=== PATIENT | male | born 1960 | race Caucasian/White ===

== ENCOUNTER 2017-07-08 07:51 | Inpatient (IN) | payer OTHER ==
--- NOTE | 2017-06-25 10:24 | HP ---
AMENDED REPORT NOW INCLUDES COSIGNER DESIGNATION - ESIGNED BEFORE ADJUSTMENT HISTORY AND PHYSICAL: DATE OF ADMISSION/SURGERY: 07/08/17 SURGEON: Sophia Carbajal MD * (DICTATED BY SALEEM RUBIO) PROCEDURE: Total knee arthroplasty. DATE OF OFFICE VISIT: 06/25/17 CHIEF COMPLAINT: Left knee pain. HISTORY OF PRESENT ILLNESS: Mr. Mendes is a 56-year-old gentleman with complaints of left knee pain. He failed conservative management and has elected to proceed with a left total knee arthroplasty which is scheduled for with Dr. Carbajal. PAST MEDICAL HISTORY: Hypertension, high cholesterol. PAST SURGICAL HISTORY: Right total knee arthroplasty, left thumb surgery, appendectomy, left knee arthroscopy. CURRENT MEDICATIONS: 1. Lisinopril. 2. Atorvastatin. 3. Calcium. 4. Claritin. 5. Aleve. 6. Gabapentin. 7. Sour lopez juice . ALLERGIES: None. FAMILY HISTORY: Diabetes. SOCIAL HISTORY: A 56-year-old gentleman lives with his . He works for [id number]. He does not smoke or use drugs. Uses alcohol occasionally. REVIEW OF SYSTEMS: A complete 14-point review of systems was reviewed with the patient. It is all negative or noncontributory. PHYSICAL EXAMINATION GENERAL: He is well developed, well nourished, in no acute distress. He is alert and oriented x3. Pleasant mood and appropriate affect. VITAL SIGNS: He stands 6 feet tall ,weighs 118 pounds. His blood pressure is 129/82, his heart rate is 83. HEENT: Normocephalic, atraumatic. NECK: Supple. No palpable nodes. PULMONARY: Lungs are clear to auscultation bilaterally. CARDIO: Regular rate and rhythm. Strong S1, S2. ABDOMEN: Soft, nontender, nondistended. NEUROLOGIC: Cranial nerves II through XII are intact. MUSCULOSKELETAL: Left lower extremity, the skin is intact. There are no open wounds or abrasions. There is a mild to moderate joint effusion. He has 0 to 125 degrees range of motion with patellofemoral crepitus. His lower extremity muscle strength is intact at 5/5. He has 2+ dorsalis pedis pulses and intact sensation. ASSESSMENT AND PLAN: Mr. Mendes is a 56-year-old gentleman with complaints of left knee pain secondary to advanced osteoarthritis. He has failed conservative management and has elected to proceed with a left total arthroplasty which is scheduled for 07/08/[address] Carbajal has discussed the risks and benefits of the surgery at today's visit. All of his questions were answered. Percocet, Coumadin and Colace were sent to his pharmacy for postoperative pain control and DVT prophylaxis. He will see Dr. Carbajal in 2 weeks after the surgery. SALEEM RUBIO [id number]/[facility] #: [id number] LEE ANN
[~2017-07-08 07:51] MED LIST: Buffered Lidocaine 0.9% SYRIN* 5 ML/SYR SYRINGE INTRADERM ONE; Famotidine IV* 10 MG/ML 2 ML (20 mg) IV ONE; Morphine INJ* 2 MG/ML 1 ML SYRINGE IV PRN; PROCHLORPERAZINE INJ 5 MG/ML 2 ML VIAL IV PRN; Scopolamine 1.5 mg* PATCH TRANSDERM PRN; fentaNYL* 50 MCG/ML 2 ML VIAL (100 MCG VIAL) IV PRN; oxyCODONE/Acetamin 5/325 MG* TAB PO PRN
[2017-07-08] MEDS ORDERED: Famotidine IV* 10 MG/ML 2 ML (20 mg) ONE (08:00)
[2017-07-08] MEDS ORDERED: Buffered Lidocaine 0.9% SYRIN* 5 ML/SYR SYRINGE ONE (08:00)
[2017-07-08] MEDS ORDERED: ceFAZolin 2 GM PREMIX (*) 50 ML IVPB ONE (08:00)
[2017-07-08] MEDS ORDERED: fentaNYL* 50 MCG/ML 2 ML VIAL (100 MCG VIAL) ONE (08:09)
[2017-07-08] MEDS ORDERED: Midazolam* 1 MG/ML 5 ML VIAL (5 MG) ONE ×2 (08:09→10:00)
[2017-07-08] MEDS ORDERED: KETAMINE HCL* 50 MG/ML 10 ML VIAL ONE (08:09)
[2017-07-08] MEDS ORDERED: Morphine PF AMP (0.5MG/ML)* 5 MG/10 ML AMP ONE (09:01)
[2017-07-08] MEDS ORDERED: PROCHLORPERAZINE INJ 5 MG/ML 2 ML VIAL IV PRN (11:06)
[2017-07-08] MEDS ORDERED: oxyCODONE TAB* 5 MG TAB PO PRN ×2 (11:06→12:46)
[2017-07-08] MEDS ORDERED: Naloxone* 0.4 MG/ML 1 ML VIAL IV PRN (11:06)
[2017-07-08] MEDS ORDERED: Nalbuphine* 20 MG/ML 1 ML VIAL IV PRN (11:06)
[2017-07-08] MEDS ORDERED: Ondansetron INJ* 2 MG/ML VIAL IV PRN ×2 (11:06→12:46)
[2017-07-08] MEDS ORDERED: diPHENhydraMINE IV* 50 MG/ML 1 ml VIAL (BENADRYL) IV PRN ×2 (11:06→12:46)
[2017-07-08] MEDS ORDERED: Scopolomine PATCH Remove* 1 NOTE MISC PATCH OFF PRN (11:06)
[2017-07-08] MEDS ORDERED: Lactated Ringers 500 ml BAG* 500 ML IV PRN (11:14)
[2017-07-08] MEDS ORDERED: Hetastarch in NS* 500 ML IV PRN (11:14)
[2017-07-08] MEDS ORDERED: Ropivacaine 0.2% EPIDURAL* 200 MG/100 ML BAG EPIDURAL ONE (11:20)
[2017-07-08] MEDS ORDERED: Ibuprofen TAB* 600 MG PO SCH (12:00)
[2017-07-08] MEDS ORDERED: Hetastarch in NS* 500 ML IV ONE (12:06)
[2017-07-08] MEDS ORDERED: Propofol* 500 MG/50 ML BTL ONE (12:31)
[2017-07-08] MEDS ORDERED: Phenylephrine INJ* 10 MG/ML 1 ML VIAL (10 MG) ONE (12:31)
[2017-07-08] MEDS ORDERED: Lidocaine 2% PF * 5 ML VIAL ONE (12:32)
[2017-07-08] MEDS ORDERED: Propofol* 10 MG/ML 20 ML BTL IV PUSH ONE (12:32)
[2017-07-08] MEDS ORDERED: Dexamethasone IV* 4 MG/ML 1 ML (4 MG) ONE (12:32)
[2017-07-08] MEDS ORDERED: Bupivacaine 0.5% SDV PF* 30 ML VIAL ONE (12:32)
[2017-07-08] MEDS ORDERED: Scopolamine 1.5 mg* PATCH ONE (12:32)
[2017-07-08] MEDS ORDERED: Ondansetron INJ* 2 MG/ML VIAL ONE (12:32)
[2017-07-08] MEDS ORDERED: Morphine INJ* 10 MG/ML 1 ML SYRINGE IV PRN (12:46)
[2017-07-08] MEDS ORDERED: Ondansetron TAB* 4 MG PO PRN (12:46)
[2017-07-08] MEDS ORDERED: diPHENhydraMINE PO* 25 MG PO PRN (12:46)
[2017-07-08] MEDS ORDERED: Bisacodyl SUPP* 10 MG SUPP PR PRN (12:51)
[2017-07-08] MEDS ORDERED: Polyethylene Glycol 3350* 17 GM PACKET PO PRN (12:51)
--- NOTE | 2017-07-08 14:20 | RAD ---
INDICATION: Left knee arthroplasty COMPARISON: None FINDINGS: 5.4 seconds of fluoroscopy were provided for the orthopedics department. Fluoroscopic spot imaging of the left knee were obtained for operative control and show initiation of left knee arthroplasty . CPT II Codes: 6045F (fluoro time doc)
--- NOTE | 2017-07-08 14:57 | RAD ---
Indication: Immediate postop exam following LEFT total knee replacement. Comparison: April 21, 2017 radiographs. Technique: Portable AP and cross table lateral views LEFT knee. Report: Status post total knee replacement. Anterior surgical drain in place. Post-op fluid and gas is seen in the joint space and anterior subcutaneous tissues. Alignment is anatomic. No periprosthetic fracture evident. IMPRESSION: Unremarkable immediate postoperative appearance following LEFT knee replacement.
[2017-07-08] MEDS ORDERED: Ibuprofen TAB* 600 MG ONE (15:33)
[2017-07-08] MEDS: Ropivacaine 0.2% EPIDURAL* 200 MG/100 ML BAG EPIDURAL SCH ×2 (15:35→23:45)
[2017-07-08] MEDS: Enoxaparin(*) 30 MG/0.3 ML SYR SUBCUT SCH (16:43)
[2017-07-08] MEDS: ceFAZolin 1 GM VIAL(*) 1 GM in NS 0.9% 50 ML* 50 ML IVPB SCH (16:50)
[2017-07-08] MEDS ORDERED: Warfarin TAB(*) 6 MG PO ONE (17:00)
--- NOTE | 2017-07-08 17:15 | CONSULT ---
Consult Consult: HOSPITALIST CONSULT: Requesting Provider: Dr. Carbajal Reason for Consultation: Medical co-management HPI: Mr. Mendes is a 56 yo M who has a h/o HTN, HLD and mild spinal stenosis who was admitted following elective L TKR. The patient is feeling well postoperatively. He denies any pain in his knee. No CP or SOB. No abdominal pain or nausea. PMHx: HTN, HLD, spinal stenosis PSHx: R TKR, L thumb surgery, appy, L knee arthroscopy All: shellfish Meds: current medications reviewed FamHx: + diabetes SocHx: non-smoker, occasional EtOH, works at [employer], lives with Sarah. ROS: complete 11 system review of systems obtained, pertinent positives and negatives as per HPI. PE: 106/59 55 15 96.6 99% RA gen: middle aged male sitting up in bed, A&Ox3, NAD HEENT: pupils are round, equal, EOMI, oropharynx clear, oral mucosa is moist Card: nl S1S2 RRR, no edema Lungs: CTA B/L Abd: BS+ soft, NT/ND Musculoskeletal: R knee wrapped in SAM wrap and cryounit in place, hemovac with sanguinous drainage noted. Skin: warm and dry Neuro: CN II-XII grossly intact, upper extremity strength normal Labs: none A/P: Mr Mendes is a 56 yo M who has a h/o HTN, HLD and mild spinal stenosis who was admitted following an elective L TKR. 1. L TKR: management including DVT prophylaxis per orthopedics. 2. HTN: BP is low normal. Hold lisinopril-HCTZ for now. Will re-evaluate BP tomorrow and if elevated will resume. 3. HLD: resume lipitor. 4. Spinal stenosis: continue gabapentin. 5. DVT-P: lovenox bridging to coumadin 6. Full code 7. Will follow up tomorrow.
[2017-07-08] MEDS: Atorvastatin* 40 MG TAB PO SCH (21:35)
[2017-07-08] MEDS: Docusate CAP* 100 MG PO SCH (21:35)
[2017-07-08] MEDS: Ibuprofen TAB* 600 MG PO SCH (21:36)
[2017-07-08] MEDS: Gabapentin CAP(*) 300 MG PO SCH (21:36)
[2017-07-08] MEDS: Magnesium Hydroxide LIQ* 30 ML UDC PO SCH (21:37)
[2017-07-09] MEDS: ceFAZolin 1 GM VIAL(*) 1 GM in NS 0.9% 50 ML* 50 ML IVPB SCH ×2 (02:34→11:18)
[2017-07-09] MEDS: Ibuprofen TAB* 600 MG PO SCH ×4 (03:37→20:26)
[2017-07-09] MEDS: oxyCODONE/Acetamin 5/325 MG* TAB PO PRN ×3 (05:10→13:32)
--- NOTE | 2017-07-09 05:15 | OP ---
DATE OF OPERATION: 07/08/17 - ROOM #[id number] DATE OF : 58 ATTENDING SURGEON: Sophia Carbajal MD TRACK LABORER: SALEEM Lang. Ms. Berger did help throughout the procedure with preparation of the leg and wound retraction, manipulation of the knee and wound closure. ANESTHESIOLOGIST: Dr. Sanders. ANESTHESIA: Spinal. PRE-OP DIAGNOSIS: Severe end-stage degenerative osteoarthritis of the left knee joint. POST-OP DIAGNOSIS: Severe end-stage degenerative osteoarthritis of the left knee joint. OPERATIVE PROCEDURE: Left total knee arthroplasty. TOURNIQUET TIME: 55 minutes. COMPLICATIONS: None. ESTIMATED BLOOD LOSS: 306 cc. SPECIMEN: Bone and cartilage from the left knee joint sent to pathology. HARDWARE: This is [employer] cemented total knee arthroplasty hardware. Two packs of Simplex bone cement were used. For the femur, a size 7 left posterior stabilized LEGION femoral component. For the tibia, a size 7 left tibial baseplate. For the insert, an 11-mm posterior stabilized articular insert, size 7-8, and for the patella, 35-mm 3-peg all poly patella. BRIEF HISTORY/INDICATION: Mr. Mendes is a 56-year-old gentleman with years of increasingly severe left knee pain. Radiographs showed severe end stage arthritis with [id number] contact and varus deformity. The patient failed conservative treatment with antiinflammatories, pain medications, intraarticular injections, and physical therapy. He elected to undergo left total knee arthroplasty due to continued pain and decreased quality of life. Informed consent was obtained from the patient. He understood the risks of the procedure included, but were not limited to bleeding, infection, damage to nearby structures, continued pain, need for further surgery, intraoperative fracture, nerve palsy, knee stiffness, loss of motion, stroke, heart attack, blood clot, and . He wished to proceed. INTRAOPERATIVE FINDINGS: Intraoperatively, the patient was noted to have significant varus bow of both the femur, tibia and at the knee. He was found to have end-stage arthritis with significant wear, loss of cartilage and subchondral sclerosis in the medial and patellofemoral compartments. DESCRIPTION OF PROCEDURE: Mr. Mendes was identified in the preanesthesia unit. His left lower extremity was marked as the correct operative side. Informed consent was signed and placed in the chart. The patient was taken to the operating room and placed under spinal anesthesia. A Reardon catheter was placed. Tourniquet was placed on the left thigh. The left lower extremity was prepped and draped in the usual sterile fashion. Preop time-out was made to correctly identify the patient's side and site. Appropriate perioperative antibiotics were given within 1 hour of incision. Tourniquet was inflated and total tourniquet time for this procedure was 55 minutes. A 14-cm midline incision was made with a 10 blade and carried down to the extensor mechanism. New 10 blade was used to make standard medial peripatellar arthrotomy. The patella was subluxed laterally. Electrocautery was used to subperiosteally elevate the soft tissue off the superior medial tibia to the mid sagittal plane. Any osteophytes along the medial tibia were carefully removed. The knee was flexed up. Anterior horn of the lateral meniscus and ACL were sharply released. A drill was used to enter the distal femur. Intramedullary distal femoral cutting guide was pinned down the distal femur. Oscillating saw was used to make the distal femoral cuts. External rotation guide was then pinned down the distal femur and the distal femur was sized to a size 7. Size 7 multi-cutting jig was pinned down the distal femur and the appropriate 4 Chamfer cuts were made with oscillating saw. Any bony fragments were carefully removed with a rongeur. The PCL was completely released at this point. Tibia was subluxed anteriorly. Extramedullary tibial cutting guide was pinned down the proximal tibia. Oscillating saw was used to make the proximal tibial cut perpendicular to the mechanical access of the tibia. The bone was carefully removed. The knee was brought into full extension and noted to have some tightness medially. Some soft tissue release was performed. Medial and lateral ligament balancing was acceptable at this point. Flexion and extension gaps were well balanced. Spacer block fit well with full extension at the knee. The knee was flexed up. Lamina inweaver was placed both medially and laterally. Any remaining meniscus was carefully removed with electrocautery. Curved osteotome was used to remove any posterior osteophytes. Tibial tray and drop velma were placed to once again confirm satisfactory tibial cut. This was confirmed. A size 7 left femoral trial was impacted on to the distal femur and had good fit. The box for the posterior stabilized implant was repaired using a reamer and box cut osteotome. Trial size 7 tibial tray as well as an 11-mm insert trial was placed and the knee was taken through a range of motion. The knee had full extension to 130 degrees of flexion with satisfactory patellofemoral tracking. The patella was everted. 9 mm of patellar bone and cartilage were carefully removed using an oscillating saw. Patella was sized to a size 35. The three peg holes were drilled through the size 35 guide. 35 trial patella was placed and the knee was taken through a range of motion. Patellofemoral tracking was satisfactory. All trials were carefully removed. The tibia was subluxed anteriorly and sized to a size 7. Proximal tibia was prepared using a size 7 keel punch. All bony cut surfaces were copiously irrigated with sterile saline and dried. Final implants were cemented in the place starting with the tibia, followed by the femur and last the patella. An 11-mm insert trial was placed while the knee was brought out into full extension. Tourniquet was turned down at 55 minutes. The knee was copiously irrigated with sterile saline. Once the cement was fully cured, the insert trial was carefully removed. Any excess cement was carefully removed from around the implants and capsule. Electrocautery was used to obtain meticulous hemostasis. Final insert chosen was an 11 mm posterior stabilized articular insert size 7/8. This was locked in the position on the tibial tray without difficulty. Stability of the insert was checked and rechecked and noted to be stable. The extensor mechanism was closed using interrupted #1 Vicryl over a median Hemovac drain. The rest of the incision was closed in a layered fashion using 0 and 2-0 vicryls. Skin was closed using running 3-0 nylon suture. Sterile Xeroform, 4 x 4, and Webril were used to cover the incision. Titi wrap and cold pack were placed over this. The patient's anesthesia was reversed without difficulty. He was taken to the PACU in stable condition. Intended weightbearing will be weightbearing as tolerated. Intended DVT prophylaxis will be Coumadin with a Lovenox bridge. [id number]/[facility] #: [id number] LEE ANN
[2017-07-09 07:03] LABS: Hematocrit 31 % (42-52); Hemoglobin 10.2 g/dl (14.0-18.0)
[2017-07-09 07:18] LABS: BUN/Creatinine Ratio 23.3 (8-20); Calcium 8.1 mg/dL (8.6-10.3); EGFR African American 142.4 (>60); EGFR Non-African American 110.7 (>60)
[2017-07-09] MEDS ORDERED: Influenza VAC *QUAD* 2017-18* 0.5 ML SYRINGE IM ONE (09:00)
[2017-07-09] MEDS ORDERED: Lisinopril TAB* 10 MG PO SCH (09:00)
[2017-07-09] MEDS ORDERED: Hydrochlorothiazide TAB* 25 MG PO SCH (09:00)
[2017-07-09] MEDS: Magnesium Hydroxide LIQ* 30 ML UDC PO SCH ×2 (09:06→20:19)
[2017-07-09] MEDS: Cetirizine* 10 MG TAB PO SCH (09:06)
[2017-07-09] MEDS: Docusate CAP* 100 MG PO SCH ×2 (09:06→20:18)
[2017-07-09] MEDS: Gabapentin CAP(*) 300 MG PO SCH ×2 (09:06→20:19)
--- NOTE | 2017-07-09 09:08 | PN ---
Progress Note - Progress Note Date of Service: 07/09/17 SOAP: Subjective: 56 y.o male s/p L TKA 07/[address] Carbajal. Patient reports feeling well, better than with previous knee surgery. Pain well controlled. VSS overnight, afebrile. Objective: General- well appearing, AO, NAD, sitting in chair MSK- Drain removed by Dr. Carbajal this AM. Surgal dressing intact, + DF/PF, sensation grossly intact b/l LEs neg homans b/l LEs Vital Signs Temp 97.9 F 07/09/17 07:36 Pulse 58 07/09/17 07:36 Resp 16 07/09/17 09:16 BP 97/58 07/09/17 07:36 Pulse Ox 99 07/09/17 08:00 Intake & Output 07/08/17 07/09/17 07/09/17 18:59 06:59 18:59 Intake Total 2550 2317 590 Output Total 950 2650 Balance 1600 -333 590 Weight 216 lb Intake: IV Fluids 2550 997 ABX - CEFAZOLIN 55 Hetastarch 500 LR 2000 942 NS 50ML, Cefazolin 2G 50 Oral 1320 590 Output: Reardon 750 2650 Estimated Blood Loss 200 Laboratory Results - last 24 hr 07/09/17 07/09/17 07/09/17 06:49 06:49 06:49 Hgb 10.2 L Hct 31 L INR (Anticoag Therapy) 1.18 H Sodium 136 Potassium 4.0 Chloride 105 Carbon Dioxide 27 Anion Gap 4 BUN 17 Creatinine 0.73 Est GFR ( Amer) 142.4 Est GFR (Non-Af Amer) 110.7 BUN/Creatinine Ratio 23.3 H Glucose 146 H Calcium 8.1 L Assessment: stable 56 y.o male s/p L TKA 07/[address] Carbajal. Plan: - DVT prophylaxis- lovenox, INR 1.1, coumadin 8mg tonight - H&H stable - Continue PT/ OT - Likely D/C tomorrow Active Medications Generic Name Dose Route Start Last Admin Trade Name Freq PRN Reason Stop Dose Admin Atorvastatin Calcium 40 mg 07/08/17 21:00 07/08/17 21:35 Lipitor* PO 40 mg 2100 DARLIN Administration Bisacodyl 10 mg 07/08/17 12:51 Dulcolax Supp* MT DAILY PRN constipation Cetirizine HCl 10 mg 07/09/17 09:00 Zyrtec* PO QAM DARLIN Diphenhydramine HCl 12.5 mg 07/08/17 12:46 Benadryl Iv* IV Q6H PRN PRURITIS Diphenhydramine HCl 25 mg 07/08/17 12:46 Benadryl Po* PO Q6H PRN INSOMNIA Docusate Sodium 100 mg 07/08/17 21:00 07/08/17 21:35 Colace Cap* PO 100 mg BID DARLIN Administration Enoxaparin Sodium 30 mg 07/08/17 13:00 07/08/17 16:43 Lovenox(*) SUBCUT Not Given Q24H DARLIN Gabapentin 300 mg 07/08/17 21:00 07/08/17 21:36 Neurontin Cap(*) PO 300 mg BID DARLIN Administration Ropivacaine 200 mg in 100 mls @ 0 mls/hr 07/08/17 12:00 07/08/17 23:45 Ropivacaine 0.2% Epidural* EPIDURAL 10 mls/hr .PER RATE DARLIN Administration Protocol Per Protocol Hetastarch/Sodium Chloride 500 mls @ 667 mls/hr 07/08/17 11:14 Hespan* IV ONCE PRN HYPOTENSION Lactated Ringer's 500 mls @ 2,000 mls/hr 07/08/17 11:14 Lactated Ringers 500 Ml Bag* IV ONCE PRN FOR SBP < 90 Cefazolin Sodium 1 gm/ Sodium 50 mls @ 200 mls/hr 07/08/17 18:30 07/09/17 02: 34 Chloride IVPB 07/09/17 10:44 200 mls/hr Q8H DARLIN Administration Lactated Ringer's 1,000 mls @ 100 mls/hr 07/08/17 13:00 07/09/17 02:39 Lactated Ringers 1000 Ml Bag* IV 100 mls/hr PER RATE DARLIN Administration Ibuprofen 600 mg 07/08/17 21:30 07/09/17 03:37 Motrin Tab* PO 07/11/17 14:59 600 mg 0330,0930,1530,2130 DARLIN Administration Lactulose 30 ml 07/08/17 12:51 Lactulose* PO Q6H PRN constipation Magnesium Hydroxide 30 ml 07/08/17 21:00 07/08/17 21:37 Milk Of Magnesia Liq* PO Not Given BID DARLIN Morphine Sulfate 5 mg 07/08/17 12:46 Morphine Inj (Syringe)* IV Q2H PRN PAIN Ondansetron HCl 4 mg 07/08/17 12:46 Zofran Inj* IV Q6H PRN nausea Ondansetron HCl 4 mg 07/08/17 12:46 Zofran Tab* PO Q6H PRN NAUSEA Oxycodone HCl 10 mg 07/08/17 11:06 Roxycodone Tab* PO 07/11/17 07:07 Q4H PRN SEVERE PAIN Oxycodone HCl 10 mg 07/11/17 07:00 Roxycodone Tab* PO Q4H PRN BREAKTHRU PAIN Oxycodone/Acetaminophen 2 tab 07/08/17 11:06 07/09/17 05:10 Percocet 5/325 Tab* PO 07/11/17 07:07 2 tab Q4H PRN Administration Moderate Pain Oxycodone/Acetaminophen 1 tab 07/11/17 07:00 Percocet 5/325 Tab* PO Q3H PRN PAIN - MODERATE Pharmacy Profile Note 1 note 07/08/17 11:06 Scopolomine Patch Remove* PATCH OFF 07/11/17 11:08 .AFTER 72 HOURS PRN nausea Polyethylene Glycol/Electrolytes 17 gm 07/08/17 12:51 Miralax* PO DAILY PRN Constipation
[2017-07-09] MEDS: Enoxaparin(*) 30 MG/0.3 ML SYR SUBCUT SCH (13:33)
[2017-07-09] MEDS ORDERED: Warfarin TAB(*) 4 MG PO ONE (17:00)
--- NOTE | 2017-07-09 17:48 | PN ---
Subjective Date of Service: 07/09/17 Interval History: This is a 56 yo gentleman with HTN, HLD and spinal stenosis who is POD #1 s/p L TKA. He reports that he is doing very well. Pain is well controlled. No CP, SOB, abd pain, n/v. Objective Active Medications: Atorvastatin Calcium (Lipitor*) 40 mg PO 2100 [facility] Last Admin: 07/08/17 21:35 Dose: 40 mg Bisacodyl (Dulcolax Supp*) 10 mg GA DAILY PRN PRN Reason: constipation Cetirizine HCl (Zyrtec*) 10 mg PO QAM [facility] Last Admin: 07/09/17 09:06 Dose: 10 mg Diphenhydramine HCl (Benadryl Iv*) 12.5 mg IV Q6H PRN PRN Reason: PRURITIS Diphenhydramine HCl (Benadryl Po*) 25 mg PO Q6H PRN PRN Reason: INSOMNIA Docusate Sodium (Colace Cap*) 100 mg PO BID [facility] Last Admin: 07/09/17 09:06 Dose: 100 mg Enoxaparin Sodium (Lovenox(*)) 30 mg SUBCUT Q24H [facility] Last Admin: 07/09/17 13:33 Dose: 30 mg Gabapentin (Neurontin Cap(*)) 300 mg PO BID [facility] Last Admin: 07/09/17 09:06 Dose: 300 mg Ropivacaine (Ropivacaine 0.2% Epidural*) 200 mg in 100 mls @ 0 mls/hr EPIDURAL .PER RATE DARLIN; Per Protocol PRN Reason: Protocol Last Admin: 07/08/17 23:45 Dose: 10 mls/hr Hetastarch/Sodium Chloride (Hespan*) 500 mls @ 667 mls/hr IV ONCE PRN PRN Reason: HYPOTENSION Lactated Ringer's (Lactated Ringers 500 Ml Bag*) 500 mls @ 2,000 mls/hr IV ONCE PRN PRN Reason: FOR SBP < 90 Lactated Ringer's (Lactated Ringers 1000 Ml Bag*) 1,000 mls @ 100 mls/hr IV PER RATE [facility] Last Admin: 07/09/17 02:39 Dose: 100 mls/hr Ibuprofen (Motrin Tab*) 600 mg PO 0330,0930,1530,2130 [facility] Stop: 07/11/17 14:59 Last Admin: 07/09/17 15:09 Dose: 600 mg Lactulose (Lactulose*) 30 ml PO Q6H PRN PRN Reason: constipation Magnesium Hydroxide (Milk Of Magnesia Liq*) 30 ml PO BID DARLIN Last Admin: 07/09/17 09:06 Dose: 30 ml Morphine Sulfate (Morphine Inj (Syringe)*) 5 mg IV Q2H PRN PRN Reason: PAIN Ondansetron HCl (Zofran Inj*) 4 mg IV Q6H PRN PRN Reason: nausea Ondansetron HCl (Zofran Tab*) 4 mg PO Q6H PRN PRN Reason: NAUSEA Oxycodone HCl (Roxycodone Tab*) 10 mg PO Q4H PRN PRN Reason: SEVERE PAIN Stop: 07/11/17 07:07 Oxycodone HCl (Roxycodone Tab*) 10 mg PO Q4H PRN PRN Reason: BREAKTHRU PAIN Oxycodone/Acetaminophen (Percocet 5/325 Tab*) 2 tab PO Q4H PRN PRN Reason: Moderate Pain Stop: 07/11/17 07:07 Last Admin: 07/09/17 13:32 Dose: 1 tab Oxycodone/Acetaminophen (Percocet 5/325 Tab*) 1 tab PO Q3H PRN PRN Reason: PAIN - MODERATE Pharmacy Profile Note (Scopolomine Patch Remove*) 1 note PATCH OFF .AFTER 72 HOURS PRN PRN Reason: nausea Stop: 07/11/17 11:08 Polyethylene Glycol/Electrolytes (Miralax*) 17 gm PO DAILY PRN PRN Reason: Constipation Vital Signs: Temp Pulse Resp BP Pulse Ox 98.3 F 73 16 120/65 99 07/09/17 11:25 07/09/17 11:25 07/09/17 15:32 07/09/17 11:25 07/09/17 16:00 Oxygen Devices in Use Now: None Appearance: Well appearing middle aged gentleman in NAD Respiratory: Symmetrical Chest Expansion and Respiratory Effort, Clear to Auscultation Cardiovascular: NL Sounds; No Murmurs; No JVD, RRR Abdominal: NL Sounds; No Tenderness; No Distention Extremities: No Edema Skin: No Rash or Ulcers Neurological: Alert and Oriented x 3 Result Diagrams: 07/09/17 06:49 07/09/17 06:49 Assess/Plan/Problems-Billing Assessment: This is a 56 yo gentleman with HTN, HLD and spinal stenosis who is s/p L TKA. Hospitalist group has been consulted for co-management. - Patient Problems (1) S/P total knee arthroplasty Comment: POD #1 Management per ortho (2) Hypertension Comment: Now normotensive Resume home lisinopril and HCTZ tomorrow am (3) Hyperlipidemia Comment: Cont atorvastatin (4) Full code status (5) DVT prophylaxis Comment: Lovenox bridging to Coumadin per ortho Status and Disposition: Patient appears to be doing quite well postoperatively. No acute medical concerns. Hospitalist group will sign off at this time, but happy to re- evaluate if new concerns arise.
[2017-07-09] MEDS: Atorvastatin* 40 MG TAB PO SCH (20:18)
[2017-07-10] MEDS: Ibuprofen TAB* 600 MG PO SCH (03:38)
[2017-07-10 08:16] LABS: Hematocrit 32 % (42-52); Hemoglobin 10.7 g/dl (14.0-18.0)
[2017-07-10] MEDS ORDERED: Lisinopril TAB* 10 MG PO SCH (09:00)
[2017-07-10] MEDS ORDERED: Hydrochlorothiazide TAB* 25 MG PO SCH (09:00)
[2017-07-10] MEDS: Docusate CAP* 100 MG PO SCH (09:19)
[2017-07-10] MEDS: Gabapentin CAP(*) 300 MG PO SCH (09:20)
[2017-07-10] MEDS: Cetirizine* 10 MG TAB PO SCH (09:20)
[2017-07-10] MEDS: Magnesium Hydroxide LIQ* 30 ML UDC PO SCH (09:21)
--- NOTE | 2017-07-10 11:18 | PN ---
Progress Note - Progress Note Date of Service: 07/10/17 SOAP: Subjective: 56 y.o male s/p L TKA 07/[address] Carbajal. Patient reports feeling well, better than with previous knee surgery. Pain well controlled. VSS overnight, afebrile. Pt states that he is ready for discharge Objective: General- well appearing, AO, NAD, sitting in chair MSK- Dressing changed by Dr. Carbajal this am, incision is c/d/i. + DF/PF, sensation grossly intact b/l LEs neg homans b/l LEs Vital Signs Temp 98.3 F 07/10/17 07:51 Pulse 72 07/10/17 07:51 Resp 16 07/10/17 09:20 BP 126/83 07/10/17 07:51 Pulse Ox 100 07/10/17 07:51 Intake & Output 07/09/17 07/10/17 07/10/17 18:59 06:59 18:59 Intake Total 2595 820 480 Output Total 1550 2000 400 Balance 1045 -1180 80 Intake: IV Fluids 980 LR 980 Oral 1615 820 480 Output: Urine 1550 2000 400 Other: # Bowel Movements 1 Estimated Stool Amount Small Assessment: stable 56 y.o male s/p L TKA 07/[address] Carbajal. Plan: - D/C today - DVT prophylaxis - coumadin 2mg tonight, 4mg tomorrow. - Continue pain medication - Continue PT/ OT
[2017-07-10 11:40] VITALS: BP 132/64
[2017-07-10] MEDS ORDERED: Acetaminophen TAB* 325 MG PO ONE (15:00)
[2017-07-10] MEDS: oxyCODONE/Acetamin 5/325 MG* TAB PO PRN (15:15)
--- NOTE | 2017-07-10 23:18 | DS ---
AMENDED REPORT NOW INCLUDES COSIGNER DESIGNATION - ESIGNED BEFORE ADJUSTMENT DISCHARGE SUMMARY: DATE OF ADMISSION: 07/08/17 DATE OF DISCHARGE: 07/10/17 PROVIDER: Dr. Sophia Carbajal.* (DICTATED BY SALEEM RUIZ) ADMITTING DIAGNOSIS: Left total knee arthroplasty. CONSULTATIONS: Physical Therapy, Occupational Therapy, and Hospitalist Medicine. HISTORY OF PRESENT ILLNESS: Mr. Mendes is a 56-year-old gentleman with complaints of left knee pain. He failed conservative management and had elected to proceed with a left total knee arthroplasty, which was on performed on 07/08/[address] Carbajal. HOSPITAL COURSE: The patient was admitted to [facility] on 07/08/17 and underwent a left total knee arthroplasty with no complications. The patient recovered briefly in the postanesthesia care unit and was transferred to short-stay surgical unit in stable condition. On postop day #1, the patient' s H and H was 10.2 and 31. INR was 1.18 after 8 mg Coumadin the night before. Dressing was clean, dry and intact. Left lower extremity was neurovascularly intact. He could demonstrate dorsiflexion and plantarflexion with good strength. The patient was able to get out of bed with physical therapy. Pain was controlled with oral Percocet 5/325. On postop day #2, urinary catheter was discontinued and the patient was able to void without difficulty. Incision was found to be benign with minimal drainage, no erythema or warmth. The patient's H and H was 10.7 and 32. INR was 0.89 after 8 mg of Coumadin the night before. Pain was controlled with Percocet again 5/325. The patient was able to ambulate with the use of a rolling walker and assistance. The patient' s pain was well controlled and found to be stable for discharge. Throughout the hospital course, the vital signs remained stable and the patient was afebrile. DISCHARGE CONDITION: Good. DISCHARGE MEDICATIONS: New medications: 1. Percocet 5/325. 2. Colace 100. 3. Coumadin tab 2 mg. Home medications: 1. Lisinopril. 2. Atorvastatin. 3. Calcium. 4. Claritin. 5. Aleve. 6. Gabapentin. 7. Sour lopez juice. DISCHARGE INSTRUCTIONS: Weightbearing as tolerated. Wound Care: Okay to shower, no bathing/swimming/submerging wound. Use gentle soap, pat dry. Cover with gauze, Titi wrap or tape. Call orthopedic office for increased drainage, redness, increased pain, or fever. Go to the ER with shortness of breath or chest pain. Diet: Regular diet, increase fluids and fiber to prevent constipation. Continue to use stool softeners, call our office if no bowel motion within 48 hours. Continue with physical therapy and occupational therapy as exercises shown. Visiting home nurse to do wound checks. Visiting home nurse to do blood draw for INR on Wednesday and . Coumadin dosing; 2 mg tonight, 1 mg tomorrow. Antibiotics required prior to any dental work. FOLLOWUP: Follow up with Dr. Carbajal in 10 to 14 days, call for an appointment. SALEEM RUIZ [id number]/[facility] #: [id number] [place]
[2017-07-11] MEDS ORDERED: Scopolomine PATCH Remove* 1 NOTE MISC PATCH OFF ONE (05:36)
[2017-07-11] MEDS ORDERED: oxyCODONE/Acetamin 5/325 MG* TAB PO PRN (07:00)
[2017-07-11] MEDS ORDERED: oxyCODONE TAB* 5 MG TAB PO PRN (07:00)
== END 2017-07-10 15:40 | disposition home health service (06) | DRG 302 ==
LOC: AA 07:51 → SSU 12:46
PROVIDERS: ADMIT Orthopaedic Surgery Adult Reconstructive Orthopaedic Surgery; ATTEND Orthopaedic Surgery Adult Reconstructive Orthopaedic Surgery
PROC: 0SRD0J9 Replacement of Left Knee Joint with Synthetic Substitute, Cemented, Open Approach (ICD-10-PCS; principal; 2017-07-08 10:15)
PROC: 3E0234Z Introduction of Serum, Toxoid and Vaccine into Muscle, Percutaneous Approach (ICD-10-PCS; 2017-07-09)
DX: M17.12 Unilateral primary osteoarthritis, left knee (principal); I10 Essential (primary) hypertension; E78.00 Pure hypercholesterolemia, unspecified; Z96.651 Presence of right artificial knee joint; Z83.3 Family history of diabetes mellitus; Z72.89 Other problems related to lifestyle; M25.462 Effusion, left knee; M48.00 Spinal stenosis, site unspecified; M21.162 Varus deformity, not elsewhere classified, left knee; Z23 Encounter for immunization
CPT/HCPCS: 36415; 62327; 80048; 85014; 85018; 85610; 90686; 94760; A9270-GY; C1776; J0690; J1100; J1650; J2250; J2405; J2704; J2795; J3010

== ENCOUNTER 2022-09-01 14:12 | Inpatient (IN) ==
[~2022-09-01 14:12] MED LIST changes: -Buffered Lidocaine 0.9% SYRIN* 5 ML/SYR SYRINGE INTRADERM ONE; +Buffered Lidocaine 1% SYRIN 1 ml INTRADERM ONE; -Famotidine IV* 10 MG/ML 2 ML (20 mg) IV ONE; +Lactated Ringers 1000 ml BAG 1,000 ML IV SCH; -Morphine INJ* 2 MG/ML 1 ML SYRINGE IV PRN; -PROCHLORPERAZINE INJ 5 MG/ML 2 ML VIAL IV PRN; -Scopolamine 1.5 mg* PATCH TRANSDERM PRN; -fentaNYL* 50 MCG/ML 2 ML VIAL (100 MCG VIAL) IV PRN; -oxyCODONE/Acetamin 5/325 MG* TAB PO PRN
[2022-09-01] MEDS ORDERED: ceFAZolin 2 GM in NS PREMIX 2 GM/100 ML BAG IVPB ONE (14:22)
[2022-09-01] MEDS ORDERED: Ropivacaine 5 MG/ML 20 ML VIAL 0.5% (100 MG) ONE (15:19)
[2022-09-01] MEDS ORDERED: ROPIVACAINE 5 MG/ML 30 ML BTL (0.5%) ONE (16:18)
[2022-09-01] MEDS ORDERED: Lidocaine 1% MPF 5 ML VIAL ONE (16:18)
[2022-09-01] MEDS ORDERED: Lidocaine 2% PF 10 ML AMP (OR) ONE (16:18)
[2022-09-01] MEDS ORDERED: Midazolam 2 mg/2 ml VIAL 1 mg/ml 2 ml VIAL (2 mg) ONE (16:21)
[2022-09-01] MEDS ORDERED: HYDROmorphone 1 MG/1 ML SYRINGE IV PRN (17:01)
[2022-09-01] MEDS ORDERED: Naloxone 0.4 mg VIAL 0.4 mg/ml 1 ml VIAL IV PRN (17:01)
[2022-09-01] MEDS ORDERED: HYDROmorphone 0.5 MG/0.5 ML SYRINGE ONE (17:21)
[2022-09-01] MEDS ORDERED: Sevoflurane BOTTLE ONE (17:37)
[2022-09-01] MEDS ORDERED: Acetaminophen IV 1 GM/100ML 1,000 MG/100 ML BAG IV ONE (18:15)
[2022-09-01] MEDS ORDERED: Ondansetron 4 mg VIAL 2 MG/ML 2 ml VIAL IV PRN (18:17)
[2022-09-01] MEDS ORDERED: Magnesium Hydroxide LIQ 30 ML UDC PO PRN (18:17)
[2022-09-01] MEDS ORDERED: Lactulose 30 ml UDC PO PRN (18:17)
[2022-09-01] MEDS ORDERED: Morphine 2 MG/ML SYRINGE IV PRN (18:17)
[2022-09-01] MEDS ORDERED: Ondansetron ODT 4 mg TAB 4 MG TAB PO PRN (18:17)
[2022-09-01] MEDS ORDERED: Lactated Ringers 1000 ml BAG 1,000 ML IV SCH (19:00)
[2022-09-01] MEDS: NS 0.9% 1000 ml BAG 1,000 ML IV SCH (20:07)
[2022-09-01] MEDS: Magnesium Hydroxide LIQ 30 ML UDC PO SCH (21:44)
[2022-09-02] MEDS: ceFAZolin 1 GM ADVAN 1 GM in NS 0.9% 50 ML 50 ML IVPB SCH ×3 (01:30→15:57)
[2022-09-02 06:00] LABS: Hematocrit 43 % (42-52); Hemoglobin 14.1 g/dL (14.0-18.0); Mean Platelet Volume 8.5 fL (7.4-10.4); Platelet Count 220 10^3/uL (150-450)
[2022-09-02] MEDS: NS 0.9% 1000 ml BAG 1,000 ML IV SCH (06:16)
[2022-09-02 06:45] LABS: Calcium 8.7 mg/dL (8.6-10.3); Potassium 4.8 mmol/L (3.5-5.0)
[2022-09-02 06:50] LABS: eGFR CKD-EPI 92.8 (>60)
[2022-09-02] MEDS ORDERED: Vitamin THERAPEUTIC TAB PO SCH (09:00)
[2022-09-02] MEDS ORDERED: Lisinopril/HCTZ 10/12.5 TA(NF) PO SCH (09:00)
[2022-09-02] MEDS: Magnesium Hydroxide LIQ 30 ML UDC PO SCH (09:35)
[2022-09-02 11:10] VITALS: BP 150/78
== END 2022-09-02 16:55 | disposition home or self-care (01) | DRG 320 ==
LOC: AA 14:12 → SSU 19:48
PROVIDERS: ADMIT Orthopaedic Surgery Adult Reconstructive Orthopaedic Surgery; ATTEND Orthopaedic Surgery Adult Reconstructive Orthopaedic Surgery